=== PATIENT | male | born 1960 | race Caucasian/White ===

== ENCOUNTER → 2022-02-09 16:10 | Outpatient (CLI) | payer OTHER, SELFPAY | PROVIDERS: Visit Provider Nurse Practitioner Family | DX: L02.91 Cutaneous abscess, unspecified (principal) | CPT/HCPCS: 87070; 87075; 87077; 87186; 87205 ==

== ENCOUNTER → 2023-12-20 11:21 | Outpatient (CLI) | payer OTHER, SELFPAY ==
--- NOTE | 2023-12-20 11:23 | DI.CT.S_ITS ---
PROCEDURE: CT IVP A/P W/WO INDICATIONS: Benign prostatic hyperplasia TECHNIQUE: Optional 5 mm thick noncontrast images acquired from the diaphragm to the symphysis pubis. After the administration of intravenous contrast, 5 mm thick images acquired from the diaphragm to the symphysis pubis after a 10-minute delay. 2 mm thick coronal and sagittal reformats were then performed of the kidneys and ureters. For radiation dose reduction, the following was used: automated exposure control, adjustment of mA and/or kV according to patient size. COMPARISON: None. FINDINGS: Image quality: Diagnostic. Kidneys and Ureters: Both kidneys are normal in size, without hydronephrosis. 2 punctate nonobstructing left kidney stones; 6 on the right. These measure 0.6 cm or less. No perinephric fat stranding. There is normal bilateral renal enhancement. Renal calyces appear normal in morphology when filled with contrast. Opacified portions of both ureters demonstrate normal caliber. No upper urinary tract filling defect. Bladder: Bladder wall thickness is normal. No calcified bladder stones. OTHER: Lower chest: Unremarkable. Liver: No solid mass. Gallbladder: No radiopaque gallstones or wall thickening. Biliary ducts: No biliary dilation. Pancreas: No ductal dilation. Spleen: Size is within normal limits. Adrenal Glands: No adrenal nodules. Stomach and Bowel: Normal colonic caliber, without significant wall thickening. Peritoneum: No abnormal intraperitoneal fluid. No free air. Ventral Wall: No hernia. Abdominal Nodes: No retroperitoneal or mesenteric adenopathy by size criteria. Vessels: Aorta and inferior vena cava are normal in size. PELVIS: Pelvic Organs: Prostatomegaly. Pelvic Nodes: No enlarged lymph nodes. Miscellaneous: No inguinal hernias are seen. Bones: No aggressive osseous abnormality. DDD most pronounced at L5-S1. IMPRESSION: 1. No hydronephrosis. Multiple small nonobstructing kidney stones. 2. No solid renal mass. 3. No upper urinary tract filling defect. 4. Prostatomegaly. No adenopathy. Dictated by: Nathan Narvaez M.D. on 12/20/2023 at 21:35 Approved by: Nathan Narvaez M.D. on 12/20/2023 at 21:40
[2023-12-20 12:13] LABS: Estimated Glomerular Filt Rate > 60 mL/min (>60)
== END ==
PROVIDERS: Radiology Diagnostic Radiology; PCP Internal Medicine; Referring Provider Specialist; Visit Provider Specialist
DX: N40.1 Benign prostatic hyperplasia with lower urinary tract symptoms (principal); N13.8 Other obstructive and reflux uropathy; N20.0 Calculus of kidney; M51.37 Other intervertebral disc degeneration, lumbosacral region
CPT/HCPCS: 36415; 74178; 82565; Q9967

== ENCOUNTER → 2024-01-16 12:57 | Outpatient (CLI) | payer OTHER, SELFPAY ==
--- NOTE | 2024-01-16 13:00 | DI.MRI.S_ITS ---
PROCEDURE: MR CERVICAL SPINE WO CON INDICATIONS: Radiculopathy, cervical region TECHNIQUE: Noncontrast sagittal T1 spin echo and T2 fast spin echo, sagittal STIR, foraminal oblique sagittal T2 fast spin echo, and axial gradient echo or T2 fast spin echo through the cervical spine. COMPARISON: None. FINDINGS: Alignment and Curvature: Straightening of the normal cervical lordosis Bone Marrow: Modic type 1 degenerative edematous endplate changes C7-T1 Spinal Cord: Visualized spinal cord has normal size and signal. No cerebellar tonsillar herniation. Paraspinous Soft Tissues: No paravertebral masses. Prevertebral soft tissues are normal in thickness. C2-C3: Disc space narrowing and hypertrophic right sided arthropathy. No central stenosis. No foraminal stenosis. C3-C4: Posterior disc osteophyte complex indents the ventral surface of the cord. Moderate central stenosis. No central stenosis C4-C5: Disc space is preserved. No central foraminal stenosis. No foraminal stenosis. C5-C6: Disc osteophyte complex and arthropathy. Moderate central stenosis. Moderate bilateral foraminal stenosis. C6-C7: Posterior disc osteophyte complex results in [id number] central stenosis. Moderate right and severe left foraminal stenosis C7-T1: Disc space narrowing. No central stenosis. Moderate bilateral foraminal stenosis IMPRESSION: Multilevel degenerative disc disease and arthropathy results in varying degrees of central and foraminal stenosis including moderate central stenosis C3-4, C5-6 Approved by: Sundeep Smith M.D. on 01/16/2024 at 21:40
== END ==
PROVIDERS: PCP Internal Medicine; Referring Provider Physical Medicine & Rehabilitation; Visit Provider Physical Medicine & Rehabilitation
DX: M47.22 Other spondylosis with radiculopathy, cervical region (principal); M50.11 Cervical disc disorder with radiculopathy, high cervical region; M48.02 Spinal stenosis, cervical region
CPT/HCPCS: 72141

== ENCOUNTER 2024-02-08 15:05 | Emergency (ER) | payer OTHER, SELFPAY ==
[2024-02-08 15:13] VITALS: BP 163/102; PULSE 88; RESP 12; TEMP 37.2; O2SAT 96; BMI 29.7
--- NOTE | 2024-02-08 15:17 | DI.RAD.S_ITS ---
PROCEDURE: XR HUMERUS RT 2V INDICATIONS: hit right upper arm TECHNIQUE: 2 views of the humerus were acquired. COMPARISON: None. FINDINGS: Bones: No fractures or dislocations. No suspicious bony lesions. Severe degenerative changes and subluxation of the humeral head is present at the glenohumeral joint. Soft tissues: No suspicious soft tissue calcifications. IMPRESSION: Degenerative change. No acute bony abnormality. If pain persists, followup imaging in 5-7 days is recommended to exclude occult fracture. Dictated by: Yady Mooney M.D. on 02/08/2024 at 15:50 Approved by: Yady Mooney M.D. on 02/08/2024 at 15:51
== END 2024-02-08 18:44 | disposition left against medical advice (07) ==
PROVIDERS: Emergency Provider Emergency Medicine; PCP Internal Medicine
DX: S49.91XA Unspecified injury of right shoulder and upper arm, initial encounter (principal); W18.00XA Striking against unspecified object with subsequent fall, initial encounter
CPT/HCPCS: 73060; 99281

== ENCOUNTER 2024-04-10 10:52 | Day surgery (SDC) | payer OTHER, SELFPAY ==
[2024-04-02 09:49] VITALS: BMI 27.8
[2024-04-10] VITALS (9 sets, daily range): BP systolic 115–162; BP diastolic 79–98; PULSE 64–84; RESP 12–24; TEMP 36.6–37.2; O2SAT 95–99; BMI 28.2
--- NOTE | 2024-04-10 | DI.RAD.S_ITS ---
PROCEDURE: XR CERVICAL SPINE 2V OR 3V INDICATIONS: ACDF C6-7 TECHNIQUE: 3 view(s) of the cervical spine were acquired. COMPARISON: None. FINDINGS: Intraoperative images demonstrating anterior fixation at C6-7. There is relatively good anatomic alignment and hardware appears intact. Support lines are present including endotracheal tube. IMPRESSION: Intraoperative anterior fusion. Dictated by: Trinidad Morgan M.D. on 04/11/2024 at 15:03 Approved by: Trinidad Morgan M.D. on 04/11/2024 at 15:04
[2024-04-10] MEDS: LACTATED RINGERS 1,000 ML 42 ML IV ×2 (12:26→14:42)
[2024-04-10] MEDS: ACETAMINOPHEN 325 MG TABLET 975 MG PO (12:26)
--- NOTE | 2024-04-10 13:17 | PM.PREOP ---
Pre-operative Note Interval Note History & Physical reviewed/Exam performed by Physician: Yes Changes to H&P: No
[2024-04-10] MEDS: CEFAZOLIN 2 GM/100 ML PREMIX 100 ML IV (13:48)
--- NOTE | 2024-04-10 14:13 | SUR.OPER ---
Supine, head on gel donut. Arms padded with gel pads, tucked at sides, towel roll under shoulders. Safety belt at thigh. Legs uncrossed.
[2024-04-10] MEDS: BUPIVACAINE 0.25% (PF) 10 ML, EPINEPHrine 0.15 MG INJ (14:19)
--- NOTE | 2024-04-10 15:45 | PM.OP.1 ---
Operative Date/Time/Diagnoses Date of procedure: 04/10/24 Time of procedure: 14:00 Pre-op diagnosis: 1. C6-7 spinal stenosis 2. C6-7 foramen stenosis with radiculopathy Post-op diagnosis: same Procedure & Clinicians Procedure: 1. C6-7 anterior cervical diskectomy and fusion 2. C6-7 anterior interbody cage placement 3. C6-7 anterior instrumentation with plate and screw placement in C5 and C6 vertebrae 4. Utilization of microsurgical technique and operating microscope Same procedure as scheduled: Yes Indications: Patient has been having neck pain and worsening cervical radiculopathy. Patient was found to have severe C6-7 foraminal stenosis left worse than right correlating with his left arm radiculopathy. Patient failed multiple conservative management with worsening pain weakness and numbness in his upper extremity. Patient has been having difficulty performing activity of daily living. After discussing risks benefits of treatment options, patient elected proceed with surgery. Surgeon: Miryam Singh Custom Stock Maker: Penny Barker Click Yes if Unassisted: No Anesthesia Type: General Operative Notes Closure Type: primary Prosthetic devices, grafts, tissues, transplants, or devices: GLobus extend plate, Hedron C cage Estimated Blood Loss (mL): 5 Blood products transfused: none Procedure in detail: Patient was seen in the preoperative area. Risks and benefits of the surgery was discussed with the patient. Informed consent was obtained from the patient and placed in the chart. Surgical site was marked. Patient was taken to the operative room. General anesthesia was administered. Prophylactic antibiotic was given to the patient less than 30 min before the incision was made. Patient was placed into a supine position on a radiolucent table. Patient's shoulders were taped down to allow proper C-arm imaging. Anterior cervical area was prepped and draped in a sterile fashion. Time-out was performed at this time. Using lateral C-arm imaging, the level between C6 and C7 was identified and marked on patient's neck. A oblique incision from midline towards medial border of sternocleidomastoid muscle was made. The platysma muscle was incised in line with skin incision. Metzenbaum scissor was used to develop the plane between the medial border of sternocleidomastoid d and the strap muscles medially. The carotid sheath and its contents were identified and protected behind the hand-held retractor during the entire case. The plane between the carotid sheath and strap muscles was developed with Metzenbaum scissors. Dissection was made down to the level of the anterior cervical fascia. Longus colli muscle was incised on the anterior aspect of vertebral bodies bilaterally from C6-C7. Spinal needle was placed into the C6-7 disc space and confirmed with lateral C-arm imaging. Using microsurgical technique and operative microscope, anterior cervical diskectomy was performed at C6-7 level. This was done by removing the disc material, removing the anterior and posterior osteophytes posterior longitudinal ligaments along with performing bilateral foraminotomies at the C6-7 levels. Patient was found to have severe foraminal stenosis bilaterally. Patient's stenosis was fully decompressed after decompression was completed. After the diskectomy was completed, an anterior interbody cage was obtained. The cage was packed with globus DBM bone grafting material. One cage each along with the bone grafting material was then packed into the interbody space at C6-7 along with an anterior cervical plate. The cervical plate was stabilized to the C6-7 vertebrae using screws. After confirming placement of the hardware with AP and lateral C-arm imaging, the screws were locked into the plate using the locking mechanism and torque limiting screwdriver. After the hardware was placed and confirmed with AP and lateral C-arm imaging, the wound was irrigated with sterile normal saline. The platysma muscle and the subcutaneous tissue was closed with 2-0 Vicryl. The skin was closed with 4-0 Monocryl and Steri-Strips. Patient tolerated the procedure well. Patient was transferred recovery room in stable condition. There were no complications. Complications: none Post-operative Condition: stable Disposition: PACU Plan for aftercare: Discharge to home
== END 2024-04-10 17:18 | disposition home or self-care (01) ==
PROVIDERS: PCP Internal Medicine; Referring Provider Orthopaedic Surgery Orthopaedic Surgery of the Spine; Visit Provider Orthopaedic Surgery Orthopaedic Surgery of the Spine
PROC: (CPT 22551; principal; 2024-04-10 13:15)
DX: M48.02 Spinal stenosis, cervical region (principal); M54.12 Radiculopathy, cervical region
CPT/HCPCS: 22551; 22853; 72040; 76000; C1713; J0171; J0690; J1170

== ENCOUNTER → 2024-04-19 12:49 | Outpatient (CLI) | payer OTHER, SELFPAY ==
--- NOTE | 2024-04-19 12:50 | DI.MRI.S_ITS ---
PROCEDURE: MR ELBOW RT WO CON INDICATIONS: Pain in right elbow TECHNIQUE: Noncontrast coronal proton density fast spin echo and T2 fast spin echo with fat saturation, axial and sagittal T1 spin echo and T2 fast spin echo with fat saturation through the elbow. COMPARISON: None. FINDINGS: Image quality: Excellent. Lateral structures: The lateral ulnar collateral ligament and radial collateral ligament both appear intact. The overlying common extensor tendon also appears normal. Medial structures: The ulnar collateral ligament appears intact. Mild tendinosis of the common flexor tendon origin, without tear. Edema of the ulnar nerve, raising concern for ulnar neuritis. Anterior structures: Full-thickness tear of the distal biceps tendon at the radial tuberosity insertion, with mild tendon retraction. Mild radial bicipital bursitis. The brachialis tendon is unremarkable. Posterior structures: The conjoint triceps tendon from the long and lateral heads appears intact. The medial head of the triceps tendon also appears normal, with direct muscle insertion onto the olecranon. No olecranon bursal fluid. Bone and cartilage: Mild marrow edema at the radial tuberosity, reactive. No acute fracture. IMPRESSION: 1. Full-thickness tear of the distal biceps tendon at the radial tuberosity with mild tendon retraction. Mild reactive marrow edema of the radial tuberosity. 2. Findings suggestive of ulnar neuritis. Dictated by: Isa Burgos M.D. on 04/19/2024 at 15:06 Approved by: Isa Burgos M.D. on 04/19/2024 at 15:13
== END ==
PROVIDERS: PCP Internal Medicine; Referring Provider Orthopaedic Surgery; Visit Provider Orthopaedic Surgery
DX: M70.31 Other bursitis of elbow, right elbow (principal); S46.211A Strain of muscle, fascia and tendon of other parts of biceps, right arm, initial encounter; R60.0 Localized edema; M25.521 Pain in right elbow
CPT/HCPCS: 73221